=== PATIENT | female | born 1980 | race Caucasian/White ===

== ENCOUNTER 2020-03-26 15:31 | Outpatient (CLI) | payer OTHER ==
--- NOTE | 2020-03-29 09:56 | Mammography Report ---
BILATERAL DIGITAL SCREENING MAMMOGRAM 3D/2D: 03/26/2020 CLINICAL: Routine screening. Baseline exam. No prior exams were available for comparison. The tissue of both breasts is extremely dense, which l owers the sensitivity of mammography. No significant masses, calcifications, or other findings are seen in either breast. IMPRESSION: NEGATIVE There is no mammographic evidence of malignancy. A 1 year screening mammogram is recommended. This exam was interpreted at Station ID: [id number]. NOTE: For mammograms, a report in lay terms will be sent to the patient. Approximately 15% of breast malignancies will not be visualized mammographically. In the management of a palpable breast mass, a negative mammogram must not discourage biopsy of a clinically suspicious lesion. Electronically Signed By: Jose Lofton M.D. ddcharles/jasmin:03/26/2020 16:42:10 ACR BI-RADS Category 1: Negative 3341F PARENCHYMAL PATTERN: (VD) - The breast(s) demonstrate(s) extremely dense parenchyma, limiting the sen sitivity of mammography. BI-RADS CATEGORY: (1) - 1 RECOMMENDATION: (ANNUAL) - Recommend routine annual screening mammography. [id number] 1 year screening LATERALITY: (B)
== END 2020-03-26 15:32 | disposition home or self-care (01) ==
LOC: DI 15:31
PROVIDERS: ATTEND Nurse Practitioner Family
DX: Z12.31 Encounter for screening mammogram for malignant neoplasm of breast (principal)
CPT/HCPCS: 77063; 77067

== ENCOUNTER 2021-01-11 08:59 | Outpatient (CLI) | payer OTHER ==
--- NOTE | 2021-01-12 13:39 | Ultrasound Report ---
LIMITED ULTRASOUND OF RIGHT BREAST AND AXILLA: 01/11/2021 CLINICAL: Palpable right breast lump. Comparison is made to exams dated: 01/11/2021 mammogram and 03/26/2020 mammogram - [facility]. Color flow ultrasound of the right breast 1-2 o'clock, and axilla regions was performed. Guzman scale images of the real-time examination were reviewed. There is a 2 cm x 1.7 cm x 1 cm oval mass in the right breast at 1 o'clock middle depth 6 cm from the nipple. This oval mass is hypoechoic with a well-defined boundary. This correlates as palpated and faintly seen on MLO tomosynthesis mammogram. Color flow imaging demonstrates that there is vasculari ty present. No significant abnormalities were seen sonographically in the right axilla. IMPRESSION: SUSPICIOUS OF MALIGNANCY The 2 cm x 1.7 cm x 1 cm oval mass in the right breast corresponding to the recently palpated mass is at a low suspicion for malignancy. An ultrasound guided biopsy is recommended. Exam findings were discussed with the patient by Dr. Christofer Figueroa. This exam was interpreted at Station ID: [id number]. Electronically Signed By: Kota Ramachandran M.D. slc/:01/11/2021 12:28:58 Ultrasound BI-RADS: 4a Low suspicion for malignancy BI-RADS CATEGORY: (4a) - Low Susp None [id number] Immediate follow-up LATERALITY: ()
--- NOTE | 2021-01-12 13:39 | Mammography Report ---
BILATERAL DIGITAL DIAGNOSTIC MAMMOGRAM 3D/2D: 01/11/2021 CLINICAL: Palpable right breast lump. Comparison is made to exam dated: 03/26/2020 mammogram - [facility]. The tissue of both breasts is extremely dense, which lowers the sensitivity of mammography. No significant masses, calcifications, or other findings are seen in either breast. IMPRESSION: INCOMPLETE: NEEDS ADDITIONAL IMAGING EVALUATION No mammographic evidence of malignancy. A targeted ultrasound of the right breast palpable abnormality is recommended and will immediately fo llow. This exam was interpreted at Station ID: [id number]. NOTE: For mammograms, a report in lay terms will be sent to the patient. Approximately 15% of breast malignancies will not be visualized mammographically. In the management of a palpable breast mass, a negative mammogram must not discourage biopsy of a clinically suspicious lesion. Electronically Signed By: Kota Ramachandran M.D. slc/:01/11/2021 11:08:34 ACR BI-RADS Category 0: Incomplete 3340F PARENCHYMAL PATTERN: (VD) - The breast(s) demonstrate(s) extremely dense parenchyma, limiting the sen sitivity of mammography. BI-RADS CATEGORY: (0) - 0 Ultrasound [id number] Immediate follow-up LATERALITY: (B)
== END 2021-01-11 09:00 | disposition home or self-care (01) ==
LOC: DI 08:59
PROVIDERS: ATTEND Nurse Practitioner Family
DX: R92.2 Inconclusive mammogram (principal); N63.12 Unspecified lump in the right breast, upper inner quadrant

== ENCOUNTER 2021-01-17 12:38 | Outpatient (CLI) | payer OTHER ==
[~2021-01-17 12:38] MED LIST: BUFFERED LIDOCAINE 10 ML SYRINGE ONE; LIDOCAINE MPF 1%-EPI 1:200000 30 ML VIAL ONE
[2021-01-17] MEDS ORDERED: BUFFERED LIDOCAINE 10 ML SYRINGE IU ONE (15:33)
[2021-01-17] MEDS ORDERED: LIDOCAINE MPF 1%-EPI 1:200000 30 ML VIAL TD ONE (16:00)
--- NOTE | 2021-01-19 10:15 | Mammography Report ---
UNILATERAL RIGHT DIGITAL DIAGNOSTIC MAMMOGRAM 3D/2D: 01/17/2021 CLINICAL: Right breast mass. Comparison is made to exams dated: 01/11/2021 ultrasound, 01/11/2021 mammogram, and 03/26/2020 mammogram - [facility]. The tissue of right breast is extremely dense, which lowers the sen sitivity of mammography. Post US biopsy marker is in expected position. IMPRESSION: POST PROCEDURE MAMMOGRAM FOR MARKER PLACEMENT Post US biopsy marker is in expected position, right breast 1:00 position. This exam was interpreted at Station ID: [id number]. NOTE: For mammograms, a report in lay terms will be sent to the patient. Approximately 15% of breast malignancies will not be visualized mammographically. In the management of a palpable breast mass, a negative mammogram must not discourage biopsy of a clinically suspicious lesion. Electronically Signed By: Damion Hernandez M.D. sdh/:01/17/2021 16:33:57 ACR BI-RADS Category Post-procedure mammogram for marker placement PARENCHYMAL PATTERN: (VD) - The breast(s) demonstrate(s) extremely dense parenchyma, limiting the sen sitivity of mammography. BI-RADS CATEGORY: () - Unspecified - other recall n/a LATERALITY: (B)
--- NOTE | 2021-01-26 09:27 | Ultrasound Report ---
ULTRASOUND GUIDED BIOPSY RIGHT BREAST USING VACUUM DEVICE WITH MARKING DEVICE INSERTED AND POST MAMMO GRAPHIC AND ULTRASOUND IMAGIN01/17/2021 CLINICAL: Right breast mass. PATIENT CONSENT: Risks (minor bleeding, infection, vasovagal reaction and repeat procedure), benefits and alternatives were explained to the patient and written informed consent was obtained. Correlation is made to exams dated: 01/11/2021 ultrasound, 01/11/2021 mammogram, and 03/26/2020 mammogra - [facility]. An ultrasound guided biopsy using real-time ultrasound was performed for the concerning palpable circ umscribed oval solid mass located in the right breast at 1 o'clock middle depth. This was described on the previous mammography and ultrasound reports. The skin was prepped in the usual manner. Local anesthetic was administered to the access site. A skin shanae was made in the breast. The abnormalit y was approached from the medial aspect. A 13 gauge biopsy needle was placed adjacent to the abnorma lity under ultrasound guidance. Once the needle was documented to be in the correct location, four s pecimens were obtained using the Mammotome biopsy system. The patient received additional local anes thetic during the procedure. A clip was inserted into the biopsy cavity. A skin closure strip and a sterile dressing were applied to the access site. Post procedure mammographic and ultrasound imagin g demonstrates the location device at the targeted area and partial removal of the abnormality. The specimens were sent to the laboratory for pathological analysis. IMPRESSION: ULTRASOUND GUIDED BIOPSY BENIGN Ultrasound guided biopsy of the solid mass in the right breast at 1 o'clock middle depth was successf ul. Pathology indicates benign fibroepithelial lesion, favor fibroadenoma. Pathology results are co ncordant with imaging findings. Recommend clinical follow up for persistent or worsening symptoms, or development of any clinically s uspicious findings. Return to annual mammogram screening schedule is recommended. This exam was interpreted at Station ID: [id number]. Damion Mane M.D. [facility],aty/:01/25/2021 17:37:47 BI-RADS CATEGORY: () - Mammogram [id number] return to screening LATERALITY: (B)
== END 2021-01-17 12:39 | disposition home or self-care (01) ==
LOC: DI 12:38
PROVIDERS: ATTEND Nurse Practitioner Family
DX: R92.8 Other abnormal and inconclusive findings on diagnostic imaging of breast (principal)
CPT/HCPCS: 19083

== ENCOUNTER 2023-08-29 15:22 | Outpatient (CLI) | payer BC ==
--- NOTE | 2023-08-30 09:17 | Mammography Report ---
BILATERAL DIGITAL SCREENING MAMMOGRAM 3D/2D: 08/29/2023 CLINICAL: Routine screening. Comparison is made to exams dated: 06/09/2022 mammogram - [facility], mammogram, 01/11/2021 mammogram, and 03/26/2020 mammogram - [facility]. Both breasts are extremely dense, which lowers the sensitivity of mammography (category d />75% gland ular tissue). No significant masses, calcifications, or other findings are seen in either breast. There has been no significant interval change. IMPRESSION: NEGATIVE There is no mammographic evidence of malignancy. A 1 year screening mammogram is recommended. Based on Tyrer-Cuzick model (a risk assessment model), the patient's lifetime risk is 22.7% and her 1 0 year risk is 4.1%. If a patient has an elevated risk, a more comprehensive evaluation should be con sidered and/or a referral to a genetic counselor. The [place] [employer], [employer], and NCCN Guidelines advise the consideration of Breast MRI as an adjunct to screening mammog yessi in patients whose "Lifetime risk to develop breast cancer" is 20% or higher. This exam was interpreted at Station ID: [id number]. NOTE: For mammograms, a report in lay terms will be sent to the patient. Approximately 15% of breast malignancies will not be visualized mammographically. In the management of a palpable breast mass, a negative mammogram must not discourage biopsy of a clinically suspicious lesion. Electronically Signed By: Bebeto caldera/jasmin:08/30/2023 08:34:32 letter sent: No_Letter ACR BI-RADS Category 1: Negative 3341F PARENCHYMAL PATTERN: (VD) - The breast(s) demonstrate(s) extremely dense parenchyma, limiting the sen sitivity of mammography. BI-RADS CATEGORY: (1) - 1 Mammogram [id number] 1 year screening LATERALITY: (B)
== END 2023-08-29 15:23 | disposition home or self-care (01) ==
LOC: DI 15:22
PROVIDERS: ATTEND Internal Medicine
DX: Z12.31 Encounter for screening mammogram for malignant neoplasm of breast (principal); R92.343 Mammographic extreme density, bilateral breasts